=== PATIENT | male | born 1970 | race Caucasian/White ===

== ENCOUNTER 2019-11-06 11:54 | Emergency (ER) | payer BC, SELFPAY ==
--- NOTE | ~2019-11-06 | CT_ITS ---
EXAMINATION: CTA brain carotid DATE: 11/06/2019 14:28 INDICATION: Headache. Diplopia. Dizziness. TECHNIQUE: Computed tomographic angiography (CTA) of the head was performed without and with 100 mL O mnipaque-350 intravenous contrast. CTA of the neck was performed with intravenous contrast. Automated exposure control and iterative reconstruction technique were employed. The dose-length product was 1 831.83 mGy-cm. Maximum intensity projection and volume rendered 3D-reconstructions were created by jaylon chopra technologist on a separate workstation. COMPARISON: None. FINDINGS: HEAD CTA: There is no intracranial hemorrhage, acute infarction, or abnormal intracranial mass lesion . The ventricles are normal in size. There is mild mucosal thickening in the paranasal sinuses. The m astoid air cells are normal. The orbits are normal. Right vertebral artery is dominant. There is no s ignificant stenosis of basilar artery or the posterior cerebral arteries. There is no significant dirk nosis of the intracranial internal carotid arteries or anterior or middle cerebral arteries. Anterior communicating artery is normal. The posterior communicating arteries are normal. There is no aneurys m. NECK CTA: There are no pathologically enlarged lymph nodes. There is no significant stenosis of the v ertebral arteries. There is minimal plaque in the proximal internal carotid arteries. There is 0% dirk nosis of the proximal right internal carotid artery relative to normal distal artery lumen diameter ( NASCET criteria). There is 0% stenosis of the proximal left internal carotid artery relative to sarah l distal artery lumen diameter. There is moderate cervical spondylosis. IMPRESSION: 1. Normal brain. No aneurysm or significant intracranial arterial stenosis. 2. 0% stenosis of the proximal internal carotid arteries relative to normal distal artery lumen diame ters (NASCET criteria). Reviewed, dictated and finalized at location A. ING CAPTAIN IMPRESSION: 1. Normal brain. No aneurysm or significant intracranial arterial stenosis. 2. 0% stenosis of the proximal internal carotid arteries relative to normal dis talib artery lumen diameters (NASCET criteria).
--- NOTE | ~2019-11-06 | XR_ITS ---
EXAMINATION: XR chest 1V portable EXAM DATE: 11/06/2019 13:42 INDICATION: Headache, dizziness, double vision. History of stroke. TECHNIQUE: Portable AP frontal chest x-ray was obtained. There is no prior study for comparison. FINDINGS: The lungs are clear. There are no pleural effusions. The cardiomediastinal silhouette is within normal limits. There is no pneumothorax suspected. The bones and soft tissues are unremarkab le. IMPRESSION: No acute cardiopulmonary findings. Reviewed, dictated and finalized at location B. AL ERECTOR
[2019-11-06 12:09] VITALS: BP 122/86; PULSE 100; RESP 19; TEMP 36.1; O2SAT 100
--- NOTE | 2019-11-06 12:39 | ED.HA ---
HPI - Headache General Chief Complaint: Headache Stated Complaint: HEADACHE AND DOUBLE VISION Time Seen by Provider: 11/06/19 12:37 Source: patient Mode of arrival: ambulatory Limitations: no limitations History of Present Illness HPI Narrative: Pt is a 49 y/o male who presents to the ED with c/o a constant lt frontal JJ that started 12 hours ago. He states that he went to bed last night with a 3/10 JJ and he woke up this morning with an 8/10 JJ. Pt notes that he had double vision this morning when he woke up. He states that his double vision is intermittent and it is only when things are a long distance away. His double vision is describes as him seeing things doubles a couple feet apart next to each other. If he closes one eye there is no double vision. Pt has had JJ's in the past but never this bad. He took ASA and Ibuprofen last night with no relief. Pt did not take any medicine today. He states that he lives alone and was able to drive to the ED. Pt has a H/o DM and HLD. He notes that he was seen at this ED for stroke like Sx 3 years ago. Pt denies weakness/numbness to any extremity. He reports ABD discomfort and constipation. Pt did not eat breakfast this morning because he was concerned with his Sx. Pt saw his PCP, Dr. Harris a few weeks ago. He denies fever, chills, N/V. MD elicited complaint: headache Onset (ago): hour(s) (12) Onset description: gradually Location: left and frontal Quality & Timing: aching Relieving factors: nothing Associated symptoms: other (double vision) Related Data Home Medications Medication Instructions Recorded Confirmed aspirin 325 mg tablet 325 mg PO .COMPLEX 10/09/19 blood sugar diagnostic #10 each 10/09/19 blood sugar diagnostic #10 each 10/09/19 blood sugar diagnostic #10 each 10/09/19 blood-glucose meter #1 each 10/09/19 docusate sodium 100 mg capsule 100 mg PO DAILY 10/09/19 glipizide 5 mg tablet 5 mg PO .COMPLEX 10/09/19 lancets #50 each 10/09/19 losartan 25 mg tablet 25 mg PO DAILY 10/09/19 metformin 1,000 mg tablet See Rx Instructions .ROUTE .COMPLEX 10/09/19 multivitamin 1 tablet PO DAILY 10/09/19 sildenafil 25 mg tablet See Rx Instructions .ROUTE .COMPLEX 10/09/19 sitagliptin [Januvia] mg 11/06/19 Allergies Allergy/AdvReac Type Severity Reaction Status Date / Time No Known Allergies Allergy Verified 11/06/19 12:13 Review of Systems Review of Systems: All systems reviewed & are unremarkable except as noted in HPI and below Constitutional: Constitutional: Denies chills and Denies fever(s) Eyes: Eyes: Reports diplopia Gastrointestinal: Gastrointestinal: Reports constipation, Denies nausea, Denies vomiting and Reports other (ABD discomfort) Neurologic: Reports headache(s), Denies numbness, Denies weakness and Reports other PMFSH Surgical History Surgical History No significant past surgical history Social History Social History Smoking status: Never smoker Alcohol intake: never Gender identity (if verbalized by the patient): Male Exam Narrative: Exam Narrative: General appearance: Well-developed, well-nourished Skin: Normal color Head: Normocephalic, nontraumatic Eyes: Clear conjunctiva ENT: Oropharynx normal, ears normal, nose normal Neck: Supple, nontender Chest and respiratory: Airway patent, no respiratory distress, no accessory muscle use Heart: Regular rate/rhythm Abdomen: Soft, nontender, no organomegaly, quiet bowel sounds Vascular: Normal peripheral pulses, normal capillary refill. Musculoskeletal: Normal range of motion, nontender back Neurologic: Alert and oriented ?3, EQUIPMENT MAINTENANCE TECH is normal as tested, no gross motor deficit
--- NOTE | 2019-11-06 12:52 | ECG_ITS ---
Measurements Intervals [place] Rate: 94 P: 26 GA: 143 QRS: -4 QRSD: 88 T: 35 QT: 322 QTc: 403 Interpretive Statements SINUS RHYTHM VOLTAGE CRITERIA FOR LVH DELAYED PRECORDIAL R/S TRANSITION BORDERLINE ECG Electronically Signed On 11-06-2019 13:24:16 [facility] MANAGER by Pratik Segura D.O.
[2019-11-06] MEDS: ONDANSETRON INJ 4 MG/2 ML VIAL IV PUSH (13:01)
[2019-11-06] MEDS: MORPHINE SULFATE 4 MG/ML INJ IV PUSH (13:01)
[2019-11-06 13:13] VITALS: BP 138/72; PULSE 100; RESP 19; O2SAT 100
[2019-11-06 13:58] LABS: Basophils Absolute Auto 0.1 K/mm3 (0.0-0.1); Basophils Percent Auto 0.6 % (0.2-1.2); Eosinophils Absolute Auto 0.2 K/mm3 (0-0.3); Eosinophils Percent Auto 2.7 % (0-4.4); Hematocrit 38.9 % (42.0-52.0); Hemoglobin 13.6 g/dL (14.0-18.0); Immature Granulocyte Absolute 0.06 K/mm3 (0.00-0.031); Immature Granulocyte Percent A 0.7 % (0-0.5); Lymphocytes Absolute Auto 1.94 K/mm3 (0.9-3.2); Lymphocytes Percent Auto 21.7 % (18.3-44.2); Mean Corpuscular Volume 85.9 fl (80-100); Mean Platelet Volume 10.7 fl (7.4-10.4); Monocytes Absolute Auto 0.6 K/mm3 (0.1-0.6); Monocytes Percent Auto 6.8 % (2.6-8.5); Neutrophils Percent Auto 67.5 % (45.5-73.1); Platelet Count Result 243 k/mm3 (150-375); Red Blood Count 4.53 M/mm3 (4.6-6.20); Red Cell Distribution Width 11.9 % (11.5-14.5); White Blood Count 8.9 K/mm3 (4.5-10.0)
[2019-11-06 14:02] LABS: Add Urine Microscopic? YES; Appearance Urine Clear (Clear); Bilirubin Urine Negative (Negative); Blood Urine Negative (Negative); Color Urine Straw (Yellow); Glucose Urine UA 3+ mg/dL (Negative); Ketones Urine Negative (Negative); Leukocyte Esterase Ur Negative LEU/UL (Negative); Mucus Urine Rare /lpf; Nitrate Urine Negative (Negative); Protein Urine Negative (Negative); Urobilinogen Urine Negative mg/dL (<2.0)
[2019-11-06 14:10] LABS: Blood Urea Nitrogen 12 mg/dL (8-26); Estimated CRCL calculation 124 ml/min; Estimated Glomerular Filt Rate > 60
[2019-11-06 14:11] LABS: Alanine Aminotransferase 32 U/L (4-50); Albumin Level 4.5 g/dL (3.5-5.1); Alkaline Phosphatase 94 U/L (38-126); Aspartate Amino Transferase 26 U/L (17-59); Bilirubin,Total 0.7 mg/dL (0.2-1.3); Blood Urea Nitrogen 12 mg/dL (9-20); Calcium 10.1 mg/dL (8.4-10.2); Carbon Dioxide 21 mmol/L (22-30); Chloride 101 mmol/L (98-107); Estimated CRCL calculation 124 ml/min; Estimated Glomerular Filt Rate > 60; Glucose 184 mg/dL (75-110); Potassium 4.4 mmol/L (3.4-5.0); Sodium 135 mmol/L (137-145)
[2019-11-06 15:42] VITALS: BP 130/87; PULSE 88; RESP 19; O2SAT 100
== END 2019-11-06 15:48 | disposition home or self-care (01) ==
PROVIDERS: Emergency Provider Emergency Medicine; PCP Emergency Medicine
DX: H53.34 Suppression of binocular vision (principal); H53.2 Diplopia; R51 Headache
CPT/HCPCS: 36415; 70496; 70498; 71045; 80053; 81001; 85025; 93005; 96374; 96375; 99284; J2270; J2405; Q9967

== ENCOUNTER → 2019-11-21 14:10 | Outpatient (CLI) | payer BC, SELFPAY ==
--- NOTE | ~2019-11-21 | MR_ITS ---
EXAMINATION: MR brain/brain stem wo con EXAM DATE: 11/21/2019 14:53 INDICATION: Left-sided migraine headache and left eye. Double vision. TECHNIQUE: Magnetic resonance imaging (MRI) of the brain/brain stem obtained without contrast. Sagitt al T1, axial diffusion, gradient echo (T2*), T1, T2, FLAIR sequences obtained. There is no prior st udy for comparison. FINDINGS: There are no areas of restricted diffusion to suggest acute infarction. There is no acute hemorrhage seen on the T2*, a hemosiderin sensitive sequence. No intraparenchymal brain mass. The ve ntricles are normal in size. There are no extra-axial collections. Flow voids are seen in the cereb ral arteries on the T2-weighted sequences consistent with their expected patency. The orbits are unr emarkable. Soft tissue is unremarkable. IMPRESSION: 1. Unremarkable brain MRI examination. Reviewed, dictated and finalized at location B. OLATIER
== END ==
PROVIDERS: PCP Emergency Medicine; Visit Provider Psychiatry & Neurology Neurology
DX: H53.2 Diplopia (principal)
CPT/HCPCS: 70551

== ENCOUNTER 2020-02-14 16:41 | Emergency (ER) | payer BC, SELFPAY ==
[2020-02-14 16:55] VITALS: BP 115/71; PULSE 101; RESP 18; TEMP 36.7; O2SAT 99
--- NOTE | 2020-02-14 17:16 | ED.SKABFB ---
HPI - Skin/Abscess/Foreign Bdy General Chief complaint: Skin/Abscess/Foreign Body Stated complaint: cyst on chest Time Seen by Provider: 02/14/20 17:17 Source: patient and RN notes reviewed Mode of arrival: ambulatory Limitations: no limitations History of Present Illness HPI narrative: 49 male presents with concern for possible abscess on his chest. Reports symptoms started today with tenderness, redness, firmness on his left upper chest. Reports a small amount of cloudy drainage from the area. Denies any known injury, broken skin. Denies fever, malaise. Denies trouble breathing, chest pain. MD complaint: abscess/boil Related Data Home Medications Medication Instructions Recorded Confirmed aspirin 325 mg tablet 325 mg PO .COMPLEX 10/09/19 blood sugar diagnostic #10 each 10/09/19 blood sugar diagnostic #10 each 10/09/19 blood sugar diagnostic #10 each 10/09/19 blood-glucose meter #1 each 10/09/19 docusate sodium 100 mg capsule 100 mg PO DAILY 10/09/19 lancets #50 each 10/09/19 multivitamin 1 tablet PO DAILY 10/09/19 sildenafil 25 mg tablet See Rx Instructions .ROUTE .COMPLEX 10/09/19 sitagliptin [Januvia] mg 11/06/19 Allergies Allergy/AdvReac Type Severity Reaction Status Date / Time No Known Allergies Allergy Verified 11/06/19 12:13 Review of Systems Review of Systems: Narrative: CONSTITUTIONAL: Denies malaise, chills, sweats, or fever. CARDIOVASCULAR: Denies chest pain, palpitations, or edema. RESPIRATORY: Denies cough or dyspnea. SKIN: Reports firm, red, tender area on the left chest MUSCULOSKELETAL: Denies back pain, joint pain, or myalgia. NEUROLOGIC: Denies numbness, weakness, or headache. PSYCHIATRIC: Denies anxiety or depression. All systems reviewed & are unremarkable except as noted in HPI and below PMFSH Social History Social History Smoking status: Never smoker Alcohol intake: never Gender identity (if verbalized by the patient): Male Comments At time of signature, agree with nursing past medical, surgical, social and family history. There is no relevant family history pertinent to the presenting complaint Exam Narrative: Exam Narrative: GENERAL: Well-appearing, well-nourished, and in no acute distress. HEAD: Normocephalic EYES: PERRLA, conjunctivae clear ENT: Nares clear. Mucous membranes moist. NECK: Supple. CHEST: No respiratory distress. Clear to auscultation. No bony deformities, no asymmetry. Speaks in full sentences. HEART: Regular rate and rhythm. No murmur heard. SKIN: Warm, dry, no rash. 6cm x 3 cm area of mild erythema, induration, no fluctuation to the left anterior chest, mildly tender, no drainage noted. NEURO: Alert and oriented x3. PSYCH: Normal mood and affect Course Course Emergency Course: Patient is aware of diagnosis, understands and agrees to treatment plan. Anticipatory guidance given. Patient agrees to follow-up as directed and is aware of reasons to seek care at the emergency department. Portions of this record may have been created with voice recognition software Vital Signs Vital signs: Vital Signs Temperature 98.0 F 02/14/20 16:55 Pulse Rate 101 H 02/14/20 16:55 Respiratory Rate 18 02/14/20 16:55 Blood Pressure 115/71 02/14/20 16:55 Pulse Oximetry 99 02/14/20 16:55 Temperature 98.0 F 02/14/20 16:55 Pulse Rate 101 H 02/14/20 16:55 Respiratory Rate 18 02/14/20 16:55 Blood Pressure 115/71 02/14/20 16:55 Pulse Oximetry 99 02/14/20 16:55 Reviewed. MDM - Skin/Abscess/Foreign Bdy MDM Narrative Medical decision making narrative: Exam findings show no acute concerns or changes; patient is non-toxic appearing and is in no distress. Patient is appropriate for outpatient treatment and follow-up. Differential Diagnosis Differential diagnosis: Likely abscess of skin or subcutaneous tissue and cellulitis Critical Care Time Critical Care Time Critical Care Time:
== END 2020-02-14 17:48 | disposition home or self-care (01) ==
PROVIDERS: Emergency Provider Nurse Practitioner; PCP Emergency Medicine
DX: L03.313 Cellulitis of chest wall (principal); Z79.82 Long term (current) use of aspirin; Z79.84 Long term (current) use of oral hypoglycemic drugs; I10 Essential (primary) hypertension; E78.00 Pure hypercholesterolemia, unspecified; E11.9 Type 2 diabetes mellitus without complications
CPT/HCPCS: 99213; G0463

== ENCOUNTER 2024-01-22 07:44 | Outpatient (CLI) | payer BC, SELFPAY ==
--- NOTE | ~2024-01-22 | XR_ITS ---
EXAMINATION: XR chest 2V DATE: 01/22/2024 08:04 INDICATION: Cough and symptoms involving the circulatory/respiratory system. TECHNIQUE: PA and lateral views of the chest were obtained. COMPARISON: None FINDINGS: The lungs are clear with no focal airspace opacities, pulmonary edema, pleural effusion or pneumothor ax. The cardiomediastinal silhouette is normal. Visualized bones and soft tissues are unremarkable. IMPRESSION: 1. No acute cardiopulmonary disease. Reviewed, dictated and finalized at location A.
--- NOTE | ~2024-01-22 | XR_ITS ---
EXAMINATION:XR_[id number]_CR DATE: 01/22/2024 08:04 INDICATION: Neck pain TECHNIQUE: AP, lateral, lateral swimmers and odontoid views of the cervical spine are provided. COMPARISON: None FINDINGS: Straightening of the normal cervical lordosis. 2 mm retrolisthesis C5 on C6. Odontoid is intact. Nor mal atlantoaxial interval. Vertebral body heights are normal. Mild disc height loss at C5-C6 and mode rate disc height loss at C6-C7. 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 M ultilevel mild to moderate bilateral lower cervical predominant facet osteoarthritis. Prevertebral s oft tissues are normal. IMPRESSION: 1. Moderate lower cervical spondylosis. Reviewed, dictated and finalized at location A.
== END 2024-01-22 07:45 | disposition home or self-care (01) ==
PROVIDERS: PCP Emergency Medicine; Visit Provider Emergency Medicine
DX: R09.89 Other specified symptoms and signs involving the circulatory and respiratory systems (principal); M54.2 Cervicalgia; M43.02 Spondylolysis, cervical region
CPT/HCPCS: 71046; 72040

== ENCOUNTER 2024-06-08 12:18 | Outpatient (CLI) | payer BC, SELFPAY ==
--- NOTE | 2024-06-08 12:23 | ECG_ITS ---
Test Date: 2024-06-08 12:31:34 Measurements Intervals [place] Rate: 95 P: 28 MI: 136 QRS: 11 QRSD: 88 T: 43 QT: 322 QTc: 405 Interpretive Statements SINUS RHYTHM No previous ECG available for comparison Electronically Signed On 06-09-2024 14:24:01 CDT by Chris Dawson M.D.
== END 2024-06-08 12:19 | disposition home or self-care (01) ==
PROVIDERS: PCP Emergency Medicine; Visit Provider Emergency Medicine
DX: R00.2 Palpitations (principal)
CPT/HCPCS: 93005

== ENCOUNTER 2024-07-06 09:45 | Outpatient (CLI) | payer BC, SELFPAY ==
--- NOTE | ~2024-07-06 | MR_ITS ---
EXAMINATION: MR brain/brain stem wo con DATE: 07/06/2024 10:20 INDICATION: migraines, altered mental status, unspecified TECHNIQUE: Magnetic resonance imaging (MRI) of the brain and brainstem was performed without intraven ous contrast. Sequences included axial and sagittal T1-weighted SE, axial diffusion-weighted images w ith ADC maps, axial T2 propeller, axial T2-weighted FLAIR, and pre-axial KRISTOFER. Postcontrast axial an d coronal T1-weighted SE was obtained. Apparent diffusion coefficient (ADC) maps were created. COMPARISON: 11/21/2019 FINDINGS: No abnormal restricted diffusion to suggest acute ischemic infarct. No MRI evidence of hemorrhage or extra-axial collection. No suspicious foci of susceptibility to suggest prior intraparenchymal hemorr yaneli. Normal white matter signal. No evidence of advanced or lobar predominant parenchymal volume los s. The basilar cisterns are patent. Flow voids are preserved. Small retention cyst/polyp in the left maxillary sinus, mild ethmoid and frontal sinus mucosal thickening, the remaining paranasal sinuses a nd mastoid air cells are within normal limits. Globes and orbital contents are within normal limits. IMPRESSION: Unremarkable MR brain findings. Reviewed, dictated and finalized at location K.
== END 2024-07-06 09:46 | disposition home or self-care (01) ==
LOC: GOSHIMG 09:46
PROVIDERS: PCP Emergency Medicine; Visit Provider Emergency Medicine
DX: R41.82 Altered mental status, unspecified (principal); G43.909 Migraine, unspecified, not intractable, without status migrainosus
CPT/HCPCS: 70551